=== PATIENT | female | born 1985 | race Two or more races ===

== ENCOUNTER 2020-09-12 09:31 | Emergency (ER) | payer OTHER ==
[~2020-09-12] VITALS: Ht 170.2 cm; Wt 86.2 kg
[2020-09-12] MEDS ORDERED: ZEGERID 20 MG1 EACH (09:38)
== END 2020-09-12 19:24 | disposition home or self-care (01) ==
LOC: ER 09:31
DX: G89.18 Other acute postprocedural pain (principal); R10.2 Pelvic and perineal pain; R10.31 Right lower quadrant pain; R10.32 Left lower quadrant pain

== ENCOUNTER → 2022-07-14 | Emergency (ER) | payer OTHER ==
[~2022-07-14] VITALS: Ht 170.2 cm; Wt 86.2 kg
[~2022-07-14] MED LIST: ZEGERID 20 MG1 EACH
== END | disposition home or self-care (01) ==
LOC: ER 12:45
DX: B02.9 Zoster without complications (principal)

== ENCOUNTER 2022-07-15 11:02 | Inpatient (IN) | payer OTHER ==
[~2022-07-15] VITALS: Ht 152.4 cm; Wt 139.7 kg
--- NOTE | 2022-07-15 11:09 | NUR ---
PTE ALERTA,ESTABLE Y ORIENTADA.ESTA REFIERE QUE DESDE RYDER TIENE EL DOLOR JAMES PRINCE DE TJ Y GENERAL
--- NOTE | 2022-07-15 12:02 | NUR ---
SE ORIENTA PTE SOBRE EL TRATAMIENTO ORDENDO POR LA HERMAN[place] NUÑEZ PTE ALERTA Y ORIENTADO POR 3 PTE ALERTA Y CONCIENTE POR 3 RN [facility] ORDENADO Y REALIZA MUESTRAS DE LABORATORIO.
== END 2022-07-19 17:23 | disposition home or self-care (01) | DRG 866 ==
LOC: ER 11:02 → MEDJ 20:35
PROVIDERS: ADMIT Internal Medicine; ATTEND Internal Medicine
PROC: BW28ZZZ Computerized Tomography (CT Scan) of Head (ICD-10-PCS; 2022-07-15)
PROC: 8E0ZXY6 Isolation (ICD-10-PCS; principal; 2022-07-16)
PROC: B030Y0Z Magnetic Resonance Imaging (MRI) of Brain using Other Contrast, Unenhanced and Enhanced (ICD-10-PCS; 2022-07-17)
DX: B02.8 Zoster with other complications (principal); B02.29 Other postherpetic nervous system involvement; D72.829 Elevated white blood cell count, unspecified; G43.909 Migraine, unspecified, not intractable, without status migrainosus

== ENCOUNTER 2025-02-23 10:33 | Emergency (ER) | payer OTHER ==
[~2025-02-23] VITALS: Ht 170.2 cm; Wt 79.4 kg
[2025-02-23] MEDS ORDERED: LORazepam 2 MG/ML VIAL IM ONE (11:15)
[2025-02-23 12:47] LABS: BASO % 0.2 % (0.1-1.2); EOS # 0.05 (0.04-0.54); EOS % 0.3 % (0.7-7.0); LYMPH # 1.81 (1.18-3.74); LYMPH % 12.4 % (19.3-53.1); MEAN PLATELET VOLUME 9.90 fl (9.4-12.4); MONO # 0.80 (0.24-0.82); MONO % 5.5 % (4.7-12.5); NEUT # 11.86 (1.56-6.13); NEUT % 81.1 % (34.0-71.1); RED CELL DISTRIBUTION WIDTH 13.7 % (11.6-14.4)
[2025-02-23 13:07] LABS: URINE APPEARANCE Clear; URINE BILIRRUBIN Small (NEGATIVE); URINE BLOOD Negative; URINE COLOR Red; URINE GLUCOSE Negative (NEGATIVE); URINE KETONE Negative (NEGATIVE); URINE LEUKOCYTE Moderate; URINE NITRATE Positive; URINE PROTEIN 30 (NEGATIVE); URINE UROBILINOGEN 1.0 E.U./dl
[2025-02-23 13:09] LABS: URINE BACTERIA 5.9 uL (0.0-1933); URINE EPITHELIAL CELLS 4.9 uL (0.0-38.8); URINE RBC 15.3 uL (0.0-20.8)
[2025-02-23 13:14] LABS: BUN CREA RATIO 18.0 (7.0-25.0); CREATININE SERUM 0.68 mg/dL (0.55-1.02); GFR 95.83; GLUCOSE FASTING 94.0 mg/dL (65-100); OSMOLALITY SERUM 279.0 MOSM/KG (275-295)
[2025-02-23 13:46] LABS: URINE CAST 0.43 uL (0.0-1.40); URINE WBC 1.2 uL (0.0-23.2)
== END 2025-02-23 15:05 | disposition home or self-care (01) ==
LOC: ER 10:33
PROVIDERS: Emergency Medicine
DX: R10.9 Unspecified abdominal pain (principal); N39.0 Urinary tract infection, site not specified